=== PATIENT | male | born 1995 | race Caucasian/White ===

== ENCOUNTER 2019-03-14 09:54 | Emergency (ER) | payer OTHER ==
[2019-03-14 10:16] VITALS: BP 131/88
--- NOTE | 2019-03-14 10:34 | UC ---
Throat Pain/Nasal Brian HPI - HPI Summary HPI Summary: 23-year-old male with cold symptoms over the past 2 weeks and now with sinus pressure and increased head congestion. - History of Current Complaint Chief Complaint: UCEar Stated Complaint: ear pressure, sinus Time Seen by Provider: 03/14/19 10:31 Hx Obtained From: Patient Onset/Duration: Gradual Onset Severity: Mild Pain Intensity: 4 Cough: None Associated Signs & Symptoms: Positive: Sinus Discomfort, Nasal Discharge - Allergies/Home Medications Allergies/Adverse Reactions: Allergies Allergy/AdvReac Type Severity Reaction Status Date / Time No Known Allergies Allergy Verified 03/14/19 10:16 PMH/Surg Hx/FS Hx/Imm Hx Previously Healthy: Yes - Surgical History Surgical History: None - Family History Known Family History: Positive: Non-Contributory - Social History Alcohol Use: None Substance Use Type: None Smoking Status (MU): Never Smoked Tobacco Review of Systems All Other Systems Reviewed And Are Negative: Yes ENT: Positive: Nasal Discharge, Sinus Congestion, Sinus Pain/Tenderness Is Patient Immunocompromised?: No Physical Exam Triage Information Reviewed: Yes Appearance: Well-Appearing, No Pain Distress, Well-Nourished Vital Signs: Initial Vital Signs Temp 98.4 F 03/14/19 10:13 Pulse 79 03/14/19 10:13 Resp 18 03/14/19 10:13 BP 131/88 03/14/19 10:13 Pulse Ox 100 03/14/19 10:13 Vital Signs Reviewed: Yes Eyes: Positive: Conjunctiva Clear ENT: Positive: Hearing grossly normal, Pharynx normal - Yellow purulent postnasal drainage., Nasal congestion - Yellow purulent nasal coryza, Nasal drainage - Turbinates inflamed bilaterally., TMs normal, Uvula midline Neck: Positive: Supple, Nontender, No Lymphadenopathy Respiratory: Positive: Lungs clear, Normal breath sounds, No respiratory distress, No accessory muscle use Cardiovascular: Positive: RRR, No Murmur, Pulses Normal, Brisk Capillary Refill Musculoskeletal Exam: Normal Neurological Exam: Normal Psychological Exam: Normal Skin Exam: Normal Throat Pain/Nasal Course/Dx - Course Course Of Treatment: Patient is comfortable here. I'm going to treat her for sinus infection with amoxicillin twice a day for 10 days. - Differential Dx/Diagnosis Provider Diagnosis: Sinusitis Discharge ED - Sign-Out/Discharge Documenting (check all that apply): Patient Departure All imaging exams completed and their final reports reviewed: No Studies - Discharge Plan Condition: Fair Disposition: HOME Prescriptions: Amoxicillin PO (*) [Amoxicillin 875 MG (*)] 875 mg PO BID 10 Days #20 tab Patient Education Materials: Sinusitis (ED) Referrals: Radha Oconnor NP [Primary Care Provider] - Additional Instructions: Increase fluids, [id number] cold medications for congestion, follow-up with your primary care provider in 4- 5 days if no improvement. - Billing Disposition and Condition Condition: FAIR Disposition: Home
== END 2019-03-14 10:41 | disposition home or self-care (01) ==
LOC: UCEAST 09:54
DX: J32.9 Chronic sinusitis, unspecified (principal)
CPT/HCPCS: 99202; G0463

== ENCOUNTER 2019-04-07 09:41 | Emergency (ER) | payer OTHER ==
--- NOTE | 2019-04-07 09:51 | UC ---
Throat Pain/Nasal Brian HPI - HPI Summary HPI Summary: 23 yo male presents with sinus symptoms. He tells me that about a month ago he was seen here due to sinus pain/pressure/congestion and fullness in his ears. He was dx'd with a sinus infection and placed on amoxicillin. Today he tells me that he took this and felt much better for about a week, but then his symptoms gradually returned. He has been taking mucinex and OTC cold medicine with no relief. He denies fever, chills, sore throat, cough, rash. - History of Current Complaint Chief Complaint: UCGeneralIllness Stated Complaint: SINUS CONGESTION Time Seen by Provider: 04/07/19 09:49 Hx Obtained From: Patient Onset/Duration: Gradual Onset Severity: Moderate Pain Intensity: 6 Pain Scale Used: 0-10 Numeric - Allergies/Home Medications Allergies/Adverse Reactions: Allergies Allergy/AdvReac Type Severity Reaction Status Date / Time No Known Allergies Allergy Verified 04/07/19 09:50 PMH/Surg Hx/FS Hx/Imm Hx - Additional Past Medical History Additional PMH: None - Surgical History Surgical History: None - Family History Known Family History: Positive: Non-Contributory - Social History Lives: With Family Alcohol Use: None Substance Use Type: None Smoking Status (MU): Never Smoked Tobacco Review of Systems All Other Systems Reviewed And Are Negative: No Constitutional: Positive: Negative Skin: Positive: Negative Eyes: Positive: Negative ENT: Positive: Nasal Discharge, Sinus Congestion, Sinus Pain/Tenderness Respiratory: Positive: Negative Cardiovascular: Positive: Negative Gastrointestinal: Positive: Negative Musculoskeletal: Positive: Negative Psychological: Positive: Negative Physical Exam - Summary Physical Exam Summary: GENERAL: NAD. WDWN. No pain distress. SKIN: No rashes, sores, lesions, or open wounds. HEENT: Head: AT/NC Eyes: EOM intact. Conjunctiva clear without inflammation or discharge. Ears: Hearing grossly normal. B/L TMs occluded by waxy cerumen. S/p irrigation: TMs intact, no bulging, erythema, or edema. Nose: Nasal mucosa mildly swollen and erythematous without discharge. TTP maxillary > frontal sinus. Positive post nasal drip Throat: Posterior oropharynx without exudates, erythema, or tonsillar enlargement. Uvula midline. NECK: Supple. Nontender. No lymphadenopathy. CHEST: CTAB. No r/r/w. No accessory muscle use. Breathing comfortably and in no distress. CV: RRR. Pulses intact. NEURO: Alert. PSYCH: Age appropriate behavior. Triage Information Reviewed: Yes Vital Signs: Initial Vital Signs Temp 99 F 04/07/19 09:47 Pulse 80 04/07/19 09:47 Resp 18 04/07/19 09:47 BP 160/94 04/07/19 09:47 Pulse Ox 98 04/07/19 09:47 Vital Signs Reviewed: Yes Throat Pain/Nasal Course/Dx - Course Course Of Treatment: B/L cerumen impaction with successful disimpaction via irrigation by nursing. TMs WNL s/p. Suspect sinusitis - given his improvement of amoxicillin recently, will rx for doxycycline and flonase. Advised to continue mucinex OTC - Differential Dx/Diagnosis Provider Diagnosis: Sinusitis, Cerumen impaction Discharge ED - Sign-Out/Discharge Documenting (check all that apply): Patient Departure All imaging exams completed and their final reports reviewed: No Studies - Discharge Plan Condition: Stable Disposition: HOME Prescriptions: DOXYcycline CAP(*) [DOXYcycline 100MG CAP(*)] 100 mg PO BID #14 cap Fluticasone NASAL SPRAY 50MCG* [Flonase NASAL SPRAY 50MCG*] 2 spray BOTH NARES DAILY #1 btl Patient Education Materials: Rhinosinusitis (ED) Referrals: Radha Oconnor NP [Primary Care Provider] - Additional Instructions: If you develop a fever, shortness of breath, chest pain, new or worsening symptoms - please call your PCP or go to the ED immediately. Your blood pressure was high at todays visit. Please see your primary provider within 4 weeks for recheck and re-evaluation. - Billing Disposition and Condition Condition: STABLE Disposition: Home
[2019-04-07 10:05] VITALS: BP 160/94
== END 2019-04-07 10:28 | disposition home or self-care (01) ==
LOC: UCEAST 09:41
DX: J32.9 Chronic sinusitis, unspecified (principal); H61.22 Impacted cerumen, left ear
CPT/HCPCS: 99213; G0463